=== PATIENT | male | born 1985 | race Caucasian/White ===

== ENCOUNTER 2019-01-01 13:30 | Emergency (ER) | payer OTHER ==
[~2019-01-01 13:30] MED LIST: HYDR-653 PO
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
[2019-01-01 13:53] VITALS: BP 141/98
[2019-01-01 14:13] LABS: PLATELET COUNT, AUTOMATED 219 K/uL (150-450)
[2019-01-01] MEDS ORDERED: PRAZ5CAP16 PO (16:03)
[2019-01-01] MEDS ORDERED: LORA-1455 PO (16:03)
[2019-01-01] MEDS ORDERED: ESZ3PT PO (16:03)
[2019-01-01] MEDS ORDERED: FLUO-177 PO (16:03)
[2019-01-01] MEDS ORDERED: PRAZ2CAP26 PO (16:03)
[2019-01-02] MEDS ORDERED: LORA-630 PO (13:21)
[2019-01-02] MEDS ORDERED: FLUO40CA67 PO (13:21)
[2019-01-02] MEDS ORDERED: ESZ2 PO (13:21)
[2019-01-02] MEDS ORDERED: PRAZ2CAP26 PO (13:21)
[2019-01-02] MEDS ORDERED: DOXE6TAB4 PO (13:21)
== END 2019-01-01 17:00 | disposition other institution (70) ==
LOC: ER 13:49
DX: R45.851 Suicidal ideations (principal)
CPT/HCPCS: 80305; 80320; 80329; 81001; 82040; 82247; 82310; 82374; 82435; 82565; 82947; 83735; 84075; 84132; 84155; 84295; 84443; 84450; 84460; 84520; 85025; 99284

== ENCOUNTER 2019-01-01 15:43 | Inpatient (IN) | payer OTHER ==
[~2019-01-01] VITALS: Ht 172.7 cm; Wt 108.9 kg
[2019-01-01] MEDS ORDERED: ESZ3PT PO (16:03)
[2019-01-01] MEDS ORDERED: LORA-1455 PO (16:03)
[2019-01-01] MEDS ORDERED: FLUO-177 PO (16:03)
[2019-01-01] MEDS ORDERED: PRAZ2CAP26 PO (16:03)
[2019-01-01] MEDS ORDERED: PRAZ5CAP16 PO (16:03)
[2019-01-01] MEDS ORDERED: MAG HYD/AL HYD/SIMETH 30ML UDC PO PRN (16:20)
[2019-01-01] MEDS ORDERED: ACETAMINOPHEN 325 MG TAB PO PRN (16:20)
[2019-01-01 17:20] VITALS: BP 125/99
[2019-01-01] MEDS ORDERED: LORazepam 1 MG TAB PO PRN (19:15)
[2019-01-01] MEDS: PRAZOSIN HCL 1 MG CAP PO SCH (21:22)
[2019-01-01] MEDS: ESZOPICLONE 2 MG TAB PO SCH (21:22)
[2019-01-01] MEDS: PRAZOSIN HCL 5 MG CAP PO SCH (21:22)
[2019-01-02 06:13] VITALS: BP 123/75
[2019-01-02 11:02] VITALS: BP 121/70
[2019-01-02] MEDS ORDERED: PRAZ2CAP26 PO (13:21)
[2019-01-02] MEDS ORDERED: ESZ2 PO (13:21)
[2019-01-02] MEDS ORDERED: LORA-630 PO (13:21)
[2019-01-02] MEDS ORDERED: DOXE6TAB4 PO (13:21)
[2019-01-02] MEDS ORDERED: FLUO40CA67 PO (13:21)
[2019-01-02] MEDS ORDERED: FLUoxetine HCL 20 MG CAP PO SCH (16:35)
[2019-01-02] MEDS ORDERED: FLUoxetine HCL 20 MG CAP PO ONE (17:05)
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
[2019-01-02] MEDS: ESZOPICLONE 2 MG TAB PO SCH (21:12)
[2019-01-02] MEDS: PRAZOSIN HCL 1 MG CAP PO SCH (21:13)
[2019-01-02] MEDS: PRAZOSIN HCL 5 MG CAP PO SCH (21:13)
[2019-01-03 06:37] VITALS: BP 119/72
[2019-01-03] MEDS: FLUoxetine HCL 20 MG CAP PO SCH (08:24)
--- NOTE | 2019-01-03 13:17 | BHS Progress Note ---
BHS - Subjective Progress Notes Subjective Pt seen in treatment team with his outpatient therapist Shannon Turner on speaker phone. Pt says he slept well last night and mood is better, as is anxiety. Depression rated at 2-3 /10, and same rating for anxiety. Denies SI, still passive wishes, very negative, down on himself. Talking about his experience of chest pressure accompanied by extreme anxiety when he experiences flashbacks of trauma in [place] or from his childhood. Working on DBT skills, mindfulness, relaxation to help him cope. Tolerating medications well without side effects. Continue current tx plan. Suicidal Ideation: Resolving Homicidal Ideation: None BHS - Objective Physical Exam Vital Signs Vital Signs 01/02/19 01/03/19 11:02 06:37 Temp 99.4 Pulse 73 Resp 16 B/P (MAP) 119/72 (88) Pulse Ox 93 O2 Delivery Room Air Muscle Strength and Tone: WNL Gait and Station: Steady [facility] Medications Reviewed: Side Effects, Benefits of Medication, Risks Allergies Reviewed: Yes Mental Status Exam General Appearance: Casual, Cooperative, Polite, Good Interaction, Other (downcast gaze, hunched shoulders) Speech: Clear, Normal Rate, Normal Rhythm, Normal Volume, Normal Tone, Delayed Mood: Dysthmic/Depressed Affect: Sad, Anxious Thought Process: Organized, Logical, Goal Directed Thought Content: No Suicidal Ideation, No Homicidal Ideation, No Delusions, No Auditory Halllucinations, No Visual Hallucinations, No Thought Broadcasting, No Ideas of Reference, No Obsessions, No Compulsions, No Other Sensorium: Clear Cognition: Alert & Oriented-Person, Alert & Oriented-Place, Alert & Oriented- Time, Hgwad-[id number]-[id number] Memory: Immediate, Recent, Remote Intelligence: Average Insight Judgment: Fair [facility] Assessment and Plan Nefo-[id number] Encounter Date: Jan 03, 2019 Ubni-[id number] Encounter Time: 08:30 [facility] Plan: Necessary Precautions, Individual/Group Therapy, Admin/Titrate Meds, Educate Patient Tobacco Medications: Not Appropriate Condition Multpiple Antipsychotics Used: No Problems: (1) Persistent depressive disorder (2) Posttraumatic stress disorder SANDIP WEISS MD Jan 03, 2019 13:17
[2019-01-03 14:36] VITALS: BP 118/86
[2019-01-03] MEDS: ESZOPICLONE 2 MG TAB PO SCH (20:39)
[2019-01-03] MEDS: PRAZOSIN HCL 1 MG CAP PO SCH (20:39)
[2019-01-03] MEDS: PRAZOSIN HCL 5 MG CAP PO SCH (20:39)
[2019-01-03 22:26] VITALS: BP 117/79
[2019-01-04 06:15] VITALS: BP 111/68
[2019-01-04] MEDS: FLUoxetine HCL 20 MG CAP PO SCH (08:16)
[2019-01-04] MEDS ORDERED: PRAZ2CAP PO (11:53)
[2019-01-04] MEDS ORDERED: PRAZ5CAP15 PO (11:53)
--- NOTE | 2019-01-04 12:12 | BHS Discharge Summary ---
[facility] Discharge Summary Eswa-[id number] Encounter Date: Jan 04, 2019 [id number] Encounter Time: 11:00 Reason-Hosp/Final Diag (DSM-V): (1) Persistent depressive disorder Hospital Course & Plan: CHIEF COMPLAINT "I'm tired. I've had a rough go the last couple of weeks." HISTORY OF PRESENT ILLNESS This is the second ever psychiatric inpatient admission for this 33-year-old man who has a history of PTSD and depression and who is here on a voluntary basis for depression with suicidal thoughts. The patient has been struggling with some depression and PTSD over the past two years, but over the past several months, things have gotten worse. He has had increasing depressed mood, being unable to function at work, such as sitting at his desk for several hours, not getting much done. He has had many passive wishes. He denies active suicidal ideation and says he would never do anything because he loves his and his son, but he feels like he is increasingly unable to function with difficulty concentrating, low energy, a pervasive feeling of hopelessness, being overwhelmed with negative thoughts, and prominent anhedonia. He has also had s ignificant trouble with sleep and significant issues with anxiety. At times, he feels overwhelmed with anxiety to the point of a panic attack, although these sound more like anxious episodes, but not a full-blown panic. At times, he feels pressure in his chest and physical aches and pains which he attributes to anxiety. HOSPITAL COURSE Pt was admitted to [facility] and maintained on suicide precautions. He was cooperative and played an active role in his treatment. He attended all groups, [place] activities, and individual therapies. He got interested in DBT during one of the educational sessions. We met in treatment team with pt and his therapist Shannon Turner to discuss outpatient recommendations. He will continue to work with Shannon and they will consider the possibility of DBT with June Hussein. On admission his affect was very depressed, but by thomas staples he was notably more hopeful, future-oriented in his thinking, and affect was much brighter. He denied suicidal ideation throughout his hospital stay. We did not make any medication changes and he will continue to work with Ana Alcantara [facility]. Of note, he did sleep well each night of his hospital stay, so he was encouraged that the lunesta was helping. He was discharged in stable and improved condition to outpatient followup, with appointment with Shannon Turner for 11 am tomorrow (Friday 01/05). (2) Posttraumatic stress disorder Mental Status Exam General Appearance: Casual, Well Groomed, Good Eye Contact, Cooperative, Polite, Good Interaction Speech: Clear, Spontaneous, Normal Rate, Normal Rhythm, Normal Volume, Normal Tone Mood: Euthymic Affect: Full and Appropriate Thought Process: Organized, Logical, Goal Directed Thought Content: No Suicidal Ideation, No Homicidal Ideation, No Delusions, No Auditory Halllucinations, No Visual Hallucinations, No Thought Broadcasting, No Ideas of Reference, No Obsessions, No Compulsions, No Other Sensorium: Clear Cognition: Alert & Oriented-Person, Alert & Oriented-Place, Alert & Oriented- Time, [id number]-Ghpfncjk-Eddacsqnp Memory: Immediate, Recent, Remote Intelligence: Average Insight Judgment: Good Departure Item Value Date Time White Blood Count 6.3 k/uL 01/01/19 1406 Red Blood Count 5.67 M/uL H 01/01/19 1406 Hemoglobin 16.6 g/dL 01/01/19 1406 Hematocrit 49.0 % 01/01/19 1406 Mean Corpuscular Volume 86.4 fL 01/01/19 1406 Mean Corpuscular Hemoglobin 29.4 pg 01/01/19 1406 Mean Corpuscular Hemoglobin Concent 34.0 g/dL 01/01/19 1406 Red Cell Distribution Width 13.1 % 01/01/19 1406 Platelet Count 219 K/uL 01/01/19 1406 Sodium Level 139 mmol/L 01/01/19 1406 Potassium Level 3.9 mmol/L 01/01/19 1406 Chloride Level 105 mmol/L 01/01/19 1406 Carbon Dioxide Level 23 mmol/L 01/01/19 1406 Blood Urea Nitrogen 11 mg/dl 01/01/19 1406 Creatinine 0.90 mg/dl 01/01/19 1406 Glomerular Filtration Rate Calc > 60.0 01/01/19 1406 Random Glucose 88 mg/dl 01/01/19 1406 Calcium Level 9.3 mg/dl 01/01/19 1406 Magnesium Level 1.9 mg/dl 01/01/19 1406 Total Bilirubin 0.7 mg/dl 01/01/19 1406 Aspartate Amino Transf (AST/SGOT) 21 U/L 01/01/19 1406 Alanine Aminotransferase (ALT/SGPT) 36 U/L 01/01/19 1406 Alkaline Phosphatase 59 U/L 01/01/19 1406 Total Protein 8.0 g/dl 01/01/19 1406 Albumin 4.8 g/dl 01/01/19 1406 Thyroid Stimulating Hormone (TSH) 0.69 uIU/ml 01/01/19 1406 Urine Color Yellow 01/01/19 1522 Urine Clarity Clear 01/01/19 1522 Urine pH 5.0 pH 01/01/19 1522 Urine Specific [place] 1.014 01/01/19 1522 Urine Protein Negative mg/dL 01/01/19 1522 Urine Glucose (UA) Negative mg/dL 01/01/19 1522 Urine Ketones Trace mg/dL 01/01/19 1522 Urine Blood Negative 01/01/19 1522 Urine Nitrite Negative 01/01/19 1522 Urine Bilirubin Negative 01/01/19 1522 Urine Urobilinogen Negative mg/dL 01/01/19 1522 Urine Leukocyte Esterase Negative 01/01/19 1522 Salicylates Level < 10 mg/L 01/01/19 1406 Salicylate Last Dose Date unk 01/01/19 1406 Urine Opiates Screen Negative 01/01/19 1522 Acetaminophen Level < 10 ug/ml 01/01/19 1406 Urine Barbiturates Screen Negative 01/01/19 1522 Ur Tricyclic Antidepressants Screen Negative 01/01/19 1522 Urine Phencyclidine Screen Negative 01/01/19 1522 Urine Amphetamines Screen Negative 01/01/19 1522 Urine Benzodiazepines Screen Negative 01/01/19 1522 Urine Cocaine Screen Negative 01/01/19 1522 Urine Cannabinoids Screen Negative 01/01/19 1522 Serum Alcohol < 10 mg/dl 01/01/19 1406 Condition: Improved Discharge to: Home Discharge Instructions Home Meds Reported Medications Prazosin Hcl (MINIPRESS) 5 Mg Capsule, 5 MG PO QHS, CAPSULE TAKE A TOTAL OF 7 MG AT BEDTIME 01/04/19 Prazosin Hcl (MINIPRESS) 2 Mg Capsule, 2 MG PO QHS, CAPSULE TAKE A TOTAL OF 7 MG AT BEDTIME 01/04/19 Lorazepam (LORAZEPAM) 0.5 Mg Tablet, 0.5-1 TAB PO PRN 01/02/19 Fluoxetine Hcl (FLUOXETINE HCL) 40 Mg Capsule, 40 MG PO QAM, CAPSULE 01/02/19 Eszopiclone (LUNESTA) 2 Mg Tablet, 2 MG PO QHS 01/02/19 Discontinued Reported Medications Doxepin Hcl (SILENOR) 6 Mg Tablet, 6 MG PO QHS 01/02/19 Lorazepam (ATIVAN) 0.5 Mg Tablet, 0.5 MG PO Q4-6H 01/01/19 Prazosin Hcl (PRAZOSIN HCL) 5 Mg Capsule, 5 MG PO DAILY, CAPSULE 01/01/19 Prazosin Hcl (PRAZOSIN HCL) 2 Mg Capsule, 2 MG PO DAILY, CAPSULE 01/01/19 Eszopiclone (LUNESTA) 3 Mg Tablet, 3 MG PO QHS 01/01/19 Fluoxetine Hcl (FLUOXETINE HCL) 20 Mg Capsule, 40 MG PO QDAY, CAPSULE 01/01/19 Discontinued Scripts Hydrocodone Bit/Acetaminophen (NORCO 5-325 TABLET) 1 Each Tablet, 1 EACH PO Q6H, #10 TAB Prov:ALOK JORDAN MD 07/27/14 Multpiple Antipsychotics Used: No Diet: Regular Activity: As Tolerated Special Instructions: Take medications as prescribed. Follow up with outpatient provider for medication management. Follow up with outpatient therapy. Call Crisis Line should symptoms return. SANDIP WEISS MD Jan 04, 2019 12:12
== END 2019-01-04 12:15 | disposition home or self-care (01) | DRG 881 ==
LOC: BHS 15:43
PROVIDERS: ADMIT Psychiatry & Neurology Psychiatry; ATTEND Psychiatry & Neurology Psychiatry
DX: F34.1 Dysthymic disorder (principal); R45.851 Suicidal ideations; F41.9 Anxiety disorder, unspecified; F43.12 Post-traumatic stress disorder, chronic; R45.84 Anhedonia; H91.92 Unspecified hearing loss, left ear; Z62.810 Personal history of physical and sexual abuse in childhood; Z62.811 Personal history of psychological abuse in childhood; Z81.8 Family history of other mental and behavioral disorders; Z87.820 Personal history of traumatic brain injury; Z91.82 Personal history of military deployment; Z88.7 Allergy status to serum and vaccine

== ENCOUNTER 2019-02-28 12:04 | Emergency (ER) | payer OTHER ==
[~2019-02-28 12:04] MED LIST changes: +DOXE6TAB4 PO; +ESZ2 PO; +ESZ3PT PO; +FLUO-177 PO; +FLUO40CA67 PO; +LORA-1455 PO; +LORA-630 PO; +PRAZ2CAP PO; +PRAZ2CAP26 PO; +PRAZ5CAP15 PO; +PRAZ5CAP16 PO
--- NOTE | 2019-02-28 12:20 | ER Report ---
History and Physical Time Seen By MD: 12:19 HPI/ROS CHIEF COMPLAINT: Lightheaded and dizzy HISTORY OF PRESENT ILLNESS: This is a 33-year-old male presents to emergency department for lightheadedness and dizziness. Patient states he was sitting in his desk today at around 11:00 became lightheaded and dizzy, felt as though he was going to pass out continue to get worse. Has some nausea no vomiting. Denies chest pain or shortness of breath. He states he did have diarrhea all day yesterday, he states this is because he ate poorly over the weekend while helping his brother move. He states he's had some lightheaded spells in the past but never like this. He denies fevers or chills. No visual disturbances. No rashes. REVIEW OF SYSTEMS: Constitutional: No fever, no chills. Eyes: No discharge. ENT: No sore throat. Cardiovascular: No chest pain, no palpitations. Respiratory: No cough, no shortness of breath. Gastrointestinal: As above. Genitourinary: No hematuria. Musculoskeletal: No back pain. Skin: No rashes. Neurological: As above. Allergies: Coded Allergies: anthrax vaccine (Unverified Allergy, Unknown, 01/01/19) Home Meds Active Scripts Ondansetron Hcl (ZOFRAN) 4 Mg Tablet, 4 MG PO Q4-6H PRN for prn, #20 TAB Prov:MAURI CURTIS Lena [facility]- 02/28/19 Reported Medications Trazodone Hcl (TRAZODONE HCL) 50 Mg Tablet, 50 MG PO QHS 02/28/19 Olanzapine (ZYPREXA) 10 Mg Tablet, 10 MG PO QDAY 02/28/19 Prazosin Hcl (MINIPRESS) 5 Mg Capsule, 5 MG PO QHS, CAPSULE TAKE A TOTAL OF 7 MG AT BEDTIME 01/04/19 Lorazepam (LORAZEPAM) 0.5 Mg Tablet, 0.5-1 TAB PO PRN 01/02/19 Fluoxetine Hcl (FLUOXETINE HCL) 40 Mg Capsule, 40 MG PO QAM, CAPSULE 01/02/19 Discontinued Reported Medications Prazosin Hcl (MINIPRESS) 2 Mg Capsule, 2 MG PO QHS, CAPSULE TAKE A TOTAL OF 7 MG AT BEDTIME 01/04/19 Eszopiclone (LUNESTA) 2 Mg Tablet, 2 MG PO QHS 01/02/19 Past Medical/Surgical History The patient has a past medical and surgical history of multiple concussions, 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 Reviewed Nurses Notes: Yes Hx Smoking: No Smoking Status: Never Smoker Exposure to Second Hand Smoke?: No Hx Alcohol Use: Yes Constitutional Vital Sign - Last 24 Hours 02/28/19 02/28/19 12:18 13:20 Temp 97.9 Pulse 66 Resp 16 B/P (MAP) 122/79 102/69 (80) 112/79 (90) 106/67 (80) Pulse Ox 93 O2 Delivery Room Air Physical Exam General Appearance: The patient is alert, has no immediate need for airway protection and no signs of toxicity. Eyes: Pupils equal and round no pallor or injection. EOMs intact. ENT, Mouth: Mucous membranes are moist. Respiratory: There are no retractions, lungs are clear to auscultation. Cardiovascular: Regular rate and rhythm. No murmurs, clicks or rubs. Gastrointestinal: Abdomen is soft and non tender, no masses, bowel sounds normal. Neurological: Alert and oriented 4. Moving all extremities. Following all commands. Negative HINTS exam. Skin: Warm and dry, no rashes. Musculoskeletal: Neck is supple non tender. Extremities are nontender, nonswollen and have full range of motion. DIFFERENTIAL DIAGNOSIS: After history and physical exam differential diagnosis was considered for dizziness including but not limited to peripheral and central causes of vertigo, orthostatic causes including dehydration, and blood loss. Medical Decision Making Data Points Result Diagram: 02/28/19 1236 02/28/19 1236 Laboratory Hematology Test 02/28/19 12:36 02/28/19 13:21 Red Blood Count 5.19 M/uL (4.00-5.60) Mean Corpuscular Volume 86.3 fL (80.0-96.0) Mean Corpuscular Hemoglobin 29.6 pg (26.0-33.0) Mean Corpuscular Hemoglobin Concent 34.3 g/dL (32.0-36.0) Red Cell Distribution Width 13.6 % (11.5-14.5) Mean Platelet Volume 8.4 fL (7.2-11.1) Neutrophils (%) (Auto) 49.9 % (39.4-72.5) Lymphocytes (%) (Auto) 37.2 % (17.6-49.6) Monocytes (%) (Auto) 11.4 % (4.1-12.4) Eosinophils (%) (Auto) 1.1 % (0.4-6.7) Basophils (%) (Auto) 0.4 % (0.3-1.4) Nucleated RBC Relative Count (auto) 0.1 /100WBC Neutrophils # (Auto) 2.6 K/uL (2.0-7.4) Lymphocytes # (Auto) 1.9 K/uL (1.3-3.6) Monocytes # (Auto) 0.6 K/uL (0.3-1.0) Eosinophils # (Auto) 0.1 K/uL (0.0-0.5) Basophils # (Auto) 0.0 K/uL (0.0-0.1) Nucleated RBC Absolute Count (auto) 0.00 K/uL Sodium Level 137 mmol/L (137-145) Potassium Level 3.5 mmol/L (3.5-5.0) Chloride Level 106 mmol/L (98-107) Carbon Dioxide Level 24 mmol/L (22-30) Blood Urea Nitrogen 13 mg/dl (9-21) Creatinine 0.90 mg/dl (0.66-1.25) Glomerular Filtration Rate Calc > 60.0 Random Glucose 83 mg/dl (75-110) Calcium Level 9.0 mg/dl (8.4-10.2) Total Bilirubin 0.4 mg/dl (0.2-1.3) Aspartate Amino Transf (AST/SGOT) 22 U/L (0-35) Alanine Aminotransferase (ALT/SGPT) 38 U/L (0-56) Alkaline Phosphatase 53 U/L (0-126) Total Protein 6.8 g/dl (6.3-8.2) Albumin 3.9 g/dl (3.5-5.0) Urine Color Yellow Urine Clarity Clear Urine pH 6.0 pH (4.8-9.5) Urine Specific Calvin 1.014 Urine Protein Negative mg/dL (NEGATIVE) Urine Glucose (UA) Negative mg/dL (NEGATIVE) Urine Ketones Negative mg/dL (NEGATIVE) Urine Blood Negative (NEGATIVE) Urine Nitrite Negative (NEGATIVE) Urine Bilirubin Negative (NEGATIVE) Urine Urobilinogen Negative mg/dL (0.2-1.9) Urine Leukocyte Esterase Negative (NEGATIVE) Urine RBC 1 /HPF (0-2/HPF) Urine WBC <1 /HPF (0-5/HPF) Urine Squamous Epithelial Cells None /LPF (</=FEW) Urine Bacteria Negative /HPF (NONE-FEW) Urine Mucus None /HPF (NONE-FEW) Chemistry Test 02/28/19 12:36 02/28/19 13:21 White Blood Count 5.2 k/uL (4.5-11.0) Red Blood Count 5.19 M/uL (4.00-5.60) Hemoglobin 15.4 g/dL (14.0-18.0) Hematocrit 44.8 % (42.0-52.0) Mean Corpuscular Volume 86.3 fL (80.0-96.0) Mean Corpuscular Hemoglobin 29.6 pg (26.0-33.0) Mean Corpuscular Hemoglobin Concent 34.3 g/dL (32.0-36.0) Red Cell Distribution Width 13.6 % (11.5-14.5) Platelet Count 179 K/uL (150-450) Mean Platelet Volume 8.4 fL (7.2-11.1) Neutrophils (%) (Auto) 49.9 % (39.4-72.5) Lymphocytes (%) (Auto) 37.2 % (17.6-49.6) Monocytes (%) (Auto) 11.4 % (4.1-12.4) Eosinophils (%) (Auto) 1.1 % (0.4-6.7) Basophils (%) (Auto) 0.4 % (0.3-1.4) Nucleated RBC Relative Count (auto) 0.1 /100WBC Neutrophils # (Auto) 2.6 K/uL (2.0-7.4) Lymphocytes # (Auto) 1.9 K/uL (1.3-3.6) Monocytes # (Auto) 0.6 K/uL (0.3-1.0) Eosinophils # (Auto) 0.1 K/uL (0.0-0.5) Basophils # (Auto) 0.0 K/uL (0.0-0.1) Nucleated RBC Absolute Count (auto) 0.00 K/uL Glomerular Filtration Rate Calc > 60.0 Calcium Level 9.0 mg/dl (8.4-10.2) Total Bilirubin 0.4 mg/dl (0.2-1.3) Aspartate Amino Transf (AST/SGOT) 22 U/L (0-35) Alanine Aminotransferase (ALT/SGPT) 38 U/L (0-56) Alkaline Phosphatase 53 U/L (0-126) Total Protein 6.8 g/dl (6.3-8.2) Albumin 3.9 g/dl (3.5-5.0) Urine Color Yellow Urine Clarity Clear Urine pH 6.0 pH (4.8-9.5) Urine Specific Calvin 1.014 Urine Protein Negative mg/dL (NEGATIVE) Urine Glucose (UA) Negative mg/dL (NEGATIVE) Urine Ketones Negative mg/dL (NEGATIVE) Urine Blood Negative (NEGATIVE) Urine Nitrite Negative (NEGATIVE) Urine Bilirubin Negative (NEGATIVE) Urine Urobilinogen Negative mg/dL (0.2-1.9) Urine Leukocyte Esterase Negative (NEGATIVE) Urine RBC 1 /HPF (0-2/HPF) Urine WBC <1 /HPF (0-5/HPF) Urine Squamous Epithelial Cells None /LPF (</=FEW) Urine Bacteria Negative /HPF (NONE-FEW) Urine Mucus None /HPF (NONE-FEW) Urinalysis Test 02/28/19 13:21 Urine Color Yellow Urine Clarity Clear Urine pH 6.0 pH (4.8-9.5) Urine Specific Calvin 1.014 Urine Protein Negative mg/dL (NEGATIVE) Urine Glucose (UA) Negative mg/dL (NEGATIVE) Urine Ketones Negative mg/dL (NEGATIVE) Urine Blood Negative (NEGATIVE) Urine Nitrite Negative (NEGATIVE) Urine Bilirubin Negative (NEGATIVE) Urine Urobilinogen Negative mg/dL (0.2-1.9) Urine Leukocyte Esterase Negative (NEGATIVE) Urine RBC 1 /HPF (0-2/HPF) Urine WBC <1 /HPF (0-5/HPF) Urine Squamous Epithelial Cells None /LPF (</=FEW) Urine Bacteria Negative /HPF (NONE-FEW) Urine Mucus None /HPF (NONE-FEW) EKG/Imaging EKG Interpretation 12 lead EKG: Time of EKG 12:30. Rhythm: Normal sinus rhythm, ventricular rate 61 bpm. [place]: normal QRS: normal ST segments: No ST depression or elevation identified. ED Course/Re-evaluation Clinical Indication for ER IV: Hydration, IV Access ED Course The patient was admitted to room. A history of physical were obtained. Differential diagnoses were considered. An IV was started. A CBC, CMP, UA and EKG were obtained. Lab studies unremarkable, negative UA, EKG showing normal sinus rhythm, no ectopy. Patient was given a total of 2 L of normal saline, a total of 8 mg IV Zofran, 25 mg by mouth meclizine. I did review all the laboratory studies with the patient. Although his laboratory studies were unremarkable, patient was feeling significantly better after the fluids, he did have diarrhea yesterday, this could be secondary to the diarrhea. I did review this with the patient's, I did recommend following up with his primary care provider no improvement, he expressed understanding and was discharged home. He was also sent home with prescription for Zofran. Patient was agreeable with this plan of care. 02/28/2019 2:38:04 pm patient states he is feeling significant better, sitting at the edge of the bed lightheadedness and dizziness of basically resolved. Significant improvement in his color. Decision to Disposition Date: February 28, 2019 Decision to Disposition Time: 14:37 Depart Departure Latest Vital Signs Vital Signs Date Time Temp Pulse Resp B/P (MAP) Pulse Ox O2 Delivery O2 Flow Rate FiO2 02/28/19 13:20 102/69 (80) 112/79 (90) 106/67 (80) 02/28/19 12:18 97.9 66 16 93 Room Air Impression: Primary Impression: Near syncope Additional Impression: Diarrhea Condition: Improved Disposition: HOME OR SELF-CARE New Scripts Ondansetron Hcl (ZOFRAN) 4 Mg Tablet 4 MG PO Q4-6H PRN for prn, #20 TAB Prov: EVERMAURI Lena [facility] [employer] 02/28/19 Patient Instructions: Acute Diarrhea (ED), Near Syncope (ED) Additional Instructions: Be sure to drink plenty of water, Gatorade or G2. I would not recommend running in the 5K this evening. One year moving from a laying, to sitting, to standing position be sure to do this very slowly over the next several days. Take Zofran as needed for nausea and vomiting. You can take 25 mg meclizine as needed for dizziness, this may cause drowsiness. Follow-up with your primary care provider if no improvement in the next 2-5 days. Get plenty of rest. Return to the ER for any other concerns or worsening symptoms. Problem Qualifiers Additional Impression: Diarrhea Diarrhea type: unspecified type Qualified Codes: R19.7 - Diarrhea, unspecified MAURI CURTIS-THERON February 28, 2019 12:20
[2019-02-28] MEDS ORDERED: NS(*) 0.9% 1000 ML BAG 1,000 ML IV ONE ×2 (12:27→13:40)
[2019-02-28] MEDS ORDERED: ONDANSETRON 4 MG/2 ML VIAL IVP ONE ×2 (12:30→13:40)
--- NOTE | 2019-02-28 12:40 | EKG ---
FACILITY: [facility] PATIENT NAME: JASSON BARBER : [id number] MR: [id number] V: [id number] EXAM DATE: ORDERING PHYSICIAN: MAURI CURTIS TECHNOLOGIST: Test Reason : Blood Pressure : / mmHG Vent. Rate : 061 BPM Atrial Rate : 061 BPM P-R Int : 166 ms QRS Dur : 094 ms QT Int : 426 ms P-R-T Axes : 048 023 018 degrees QTc Int : 428 ms Normal sinus rhythm Normal ECG No previous ECGs available Confirmed by RICO FRIEDMAN ([id number]) on 02/28/2019 7:00:36 PM Referred By: Confirmed By:RICO FRIEDMAN
[2019-02-28 13:17] LABS: PLATELET COUNT, AUTOMATED 179 K/uL (150-450)
[2019-02-28 13:20] VITALS: BP 106/67
[2019-02-28] MEDS ORDERED: MECLIZINE HCL 25 MG TAB PO ONE (13:40)
[2019-02-28] MEDS ORDERED: TRAZ50TA34 PO (13:51)
[2019-02-28] MEDS ORDERED: OLAN10TA21 PO (13:51)
[2019-02-28] MEDS ORDERED: ONDA4TAB97 PO (14:12)
== END 2019-02-28 14:50 | disposition home or self-care (01) ==
LOC: ER 12:36
DX: R55 Syncope and collapse (principal); R19.7 Diarrhea, unspecified
CPT/HCPCS: 81001; 85025; 93005; 96361; 96374; 96376; 99284; J2405; J7030; J8597; 82040; 82247; 82310; 82374; 82435; 82565; 82947; 84075; 84132; 84155; 84295; 84450; 84460; 84520